=== PATIENT | male | born 1960 | race Caucasian/White ===

== ENCOUNTER 2016-07-06 20:21 | Inpatient (IN) | payer BC ==
[2016-07-06] VITALS (7 sets, daily range): BP systolic 59–160; BP diastolic 38–63
[~2016-07-06] VITALS: Ht 170.2 cm; Wt 128.0 kg
[2016-07-06 22:17] LABS: BASE EXCESS -12.3 mEq/L (-3 to +3); BICARBONATE 16.9 mEq/L (22-26); CARBOXY HGB 1.5 % (0-5); METHEMOGLOBIN 0.9 % (0-1.5); PCO2 52 mm Hg (35-45); PO2 75 mm Hg (80-100)
[2016-07-06 22:20] LABS: pH 7.12 (7.35-7.45)
[2016-07-06 22:21] LABS: DEVICE PB840; FI02 100 %; MECHANICAL RATE 20 resp/min; MODE AC; PEEP 5 CM/H20; SITE LR; TIDAL VOLUME 500 ML; TOTAL RESP RATE 20 resp/min
[2016-07-07] VITALS (28 sets, daily range): BP systolic 64–178; BP diastolic 37–83
[2016-07-07 00:18] LABS: METH RESISTANT S AUREUS PCR NEGATIVE (NEGATIVE)
[2016-07-07 00:19] LABS: PROBE CHECK PASS; SPECIMEN PROCESSING CONTROL PASS
[2016-07-07 00:30] LABS: BASE EXCESS -16.6 mEq/L (-3 to +3); BICARBONATE 13.9 mEq/L (22-26); DEVICE VENT; FI02 100 %; MECHANICAL RATE 20 resp/min; METHEMOGLOBIN 1.4 % (0-1.5); MODE A/C PC; PCO2 54 mm Hg (35-45); PEEP 10 CM/H20; PO2 52 mm Hg (80-100); PRESSURE CONTROL VENTILATION 15 CM H20; SITE LR ALINE; TOTAL RESP RATE 20 resp/min; pH 7.02 (7.35-7.45)
[2016-07-07 00:31] LABS: COMMENTS - BLOOD GASES C+
[2016-07-07 00:55] LABS: MEAN PLAT.VOLUME 11.1 uM^3 (9.0-12.4); PLATELET COUNT 324 K/uL (156-360)
[2016-07-07 01:04] LABS: HEMATOCRIT 33.7 % (38.0-50.0); MCH 27.5 PG (29.0-34.0); MCHC 30.3 G/DL (30.0-36.0); MCV 90.8 FL (86-99); NRBC (%) 0.1 /100 WBC (0-0); RBC DIS.WIDTH-CV 14.4 % (11.8-14.6); RBC DIS.WIDTH-SD 47.7 % (39-53); RED BLOOD COUNT 3.71 M/uL (4.00-5.50); WHITE BLOOD COUNT 29.9 K/uL (4.1-10.2)
[2016-07-07 01:06] LABS: CHLORIDE 110 mEq/L (99-109); MAGNESIUM 1.3 mg/dL (1.3-2.7); SODIUM 136 mEq/L (136-147)
[2016-07-07 01:08] LABS: GLUCOSE 260 mg/dL (70-99)
[2016-07-07 01:10] LABS: ANION GAP 13 MEQ/L (2-14); TOTAL BILIRUBIN 0.5 mg/dL (0.0-1.0)
[2016-07-07 01:12] LABS: ALKALINE PHOSPHATASE 57 IU/L (3-129); GFR ESTIMATE (CALCULATED) 16 mL/min/
[2016-07-07 01:13] LABS: UREA NITROGEN (BUN) 56 mg/dL (9-23)
[2016-07-07 01:17] LABS: TROP-I INTERPRETATION NEGATIVE; TROPONIN-I 0.05 ng/mL (0.0-0.30)
[2016-07-07 01:36] LABS: INTER. NORMALIZED RATIO 1.5; PROTHROMBIN TIME 15.8 (9.2-11.2); PTT 35.7 (25-32)
[2016-07-07 02:04] LABS: INFLUENZA A VIRAL ANTIGEN NEGATIVE; INFLUENZA B VIRAL ANTIGEN NEGATIVE
[2016-07-07 02:53] LABS: CHLORIDE 108 mEq/L (99-109); SODIUM 139 mEq/L (136-147)
[2016-07-07 02:54] LABS: GLUCOSE 384 mg/dL (70-99); POTASSIUM 4.6 mEq/L (3.7-5.4)
[2016-07-07 02:56] LABS: ANION GAP 19 MEQ/L (2-14)
[2016-07-07 02:58] LABS: GFR ESTIMATE (CALCULATED) 15 mL/min/
[2016-07-07 02:59] LABS: UREA NITROGEN (BUN) 56 mg/dL (9-23)
[2016-07-07 03:32] LABS: BASE EXCESS -10.3 mEq/L (-3 to +3); BICARBONATE 17.9 mEq/L (22-26); CARBOXY HGB 0.7 % (0-5); COMMENTS - BLOOD GASES C+; DEVICE 840 VENT; FI02 100 %; MECHANICAL RATE 20 resp/min; METHEMOGLOBIN 1.8 % (0-1.5); MODE AC; PCO2 49 mm Hg (35-45); PEEP 15 CM/H20; PO2 100 mm Hg (80-100); SITE ALINE; TIDAL VOLUME 650 ML; TOTAL RESP RATE 20 resp/min; pH 7.17 (7.35-7.45)
[2016-07-07 05:30] LABS: POINT-OF-CARE METER ID UU13113731
[2016-07-07 05:58] LABS: MEAN PLAT.VOLUME 11.6 uM^3 (9.0-12.4); PLATELET COUNT 331 K/uL (156-360)
[2016-07-07 06:22] LABS: ANION GAP 25 MEQ/L (2-14); CHLORIDE 104 MEQ/L (99-109); GFR ESTIMATE (CALCULATED) 15 mL/min/; GLUCOSE 397 mg/dL (70-99); MAGNESIUM 1.3 mg/dl (1.3-2.7); POTASSIUM 4.4 MEQ/L (3.7-5.4); SAMPLE HEMOLYSIS CHECK 0; SAMPLE ICTERIC CHECK 0; SAMPLE LIPEMIA CHECK 0; SODIUM 144 MEQ/L (136-147); UREA NITROGEN (BUN) 58 mg/dL (9-23)
[2016-07-07 06:27] LABS: HEMATOCRIT 34.2 % (38.0-50.0); MCH 26.9 PG (29.0-34.0); MCHC 29.5 G/DL (30.0-36.0); MCV 91.2 FL (86-99); RBC DIS.WIDTH-CV 14.4 % (11.8-14.6); RBC DIS.WIDTH-SD 48.5 % (39-53); RED BLOOD COUNT 3.75 M/uL (4.00-5.50)
[2016-07-07 06:30] LABS: TROP-I INTERPRETATION NEGATIVE; TROPONIN-I 0.08 ng/mL (0.0-0.30)
[2016-07-07 06:40] LABS: WHITE BLOOD COUNT 37.3 K/uL (4.1-10.2)
[2016-07-07 07:02] LABS: BASE EXCESS -11.9 mEq/L (-3 to +3); BICARBONATE 15.2 mEq/L (22-26); CARBOXY HGB 0.5 % (0-5); METHEMOGLOBIN 1.5 % (0-1.5); PCO2 38 mm Hg (35-45); PO2 71 mm Hg (80-100); pH 7.21 (7.35-7.45)
[2016-07-07 07:03] LABS: DEVICE VENT; FI02 80 %; MECHANICAL RATE 20 resp/min; MODE AC; O2 FLOW 60 L/MIN; SITE L ALINE; TIDAL VOLUME 650 ML; TOTAL RESP RATE 20 resp/min
[2016-07-07 07:04] LABS: PEEP 12 CM/H20
[2016-07-07 12:52] LABS: TROP-I INTERPRETATION NEGATIVE
[2016-07-07 13:10] LABS: ANION GAP 16 MEQ/L (2-14); CHLORIDE 101 MEQ/L (99-109); SAMPLE HEMOLYSIS CHECK 2; SAMPLE ICTERIC CHECK 0; SAMPLE LIPEMIA CHECK 0; SODIUM 138 MEQ/L (136-147); UREA NITROGEN (BUN) 58 mg/dL (9-23)
[2016-07-07 13:11] LABS: GFR ESTIMATE (CALCULATED) 19 mL/min/; GLUCOSE 502 mg/dL (70-99)
[2016-07-07 13:13] LABS: POTASSIUM ND MEQ/L (3.7-5.4)
[2016-07-07 13:45] LABS: ADD MIUA? YES; BILIRUBIN NEGATIVE; BLOOD LARGE; COLOR YELLOW ((YELLOW)); GLUCOSE (STRIP) >=500; KETONES 5; LEUKOCYTES NEGATIVE; NITRITE NEGATIVE; PROTEIN (STRIP) 30; SPECIFIC GRAVITY 1.015 (1.000-1.030); UROBILINOGEN 0.2 MG/DL (0.2-1.0)
[2016-07-07 13:52] LABS: POTASSIUM 5.1 MEQ/L (3.7-5.4)
[2016-07-07 14:19] LABS: HEMATOCRIT 31.4 % (38.0-50.0); MCH 27.8 PG (29.0-34.0); MCHC 32.8 G/DL (30.0-36.0); MEAN PLAT.VOLUME 11.5 uM^3 (9.0-12.4); NRBC (%) 0.1 /100 WBC (0-0); PLATELET COUNT 269 K/uL (156-360); RBC DIS.WIDTH-CV 14.2 % (11.8-14.6)
[2016-07-07 14:23] LABS: MCV 84.9 FL (86-99); WHITE BLOOD COUNT 16.5 K/uL (4.1-10.2)
[2016-07-07 14:32] LABS: Estimated Average Glucose 209 mg/dL (70-123); HEMOGLOBIN A1c (GLYCOHEMOGLOB) 8.9 % HGB (Below 5.7)
[2016-07-07 14:35] LABS: INTER. NORMALIZED RATIO 1.5; PROTHROMBIN TIME 15.9 (9.2-11.2); PTT 32.8 (25-32)
[2016-07-07 14:36] LABS: BACTERIA RARE /HPF; EPITHELIAL CELLS RARE /HPF; HYALINE CASTS 0-5 /LPF; MUCUS TRACE /LPF; RED BLOOD CELLS TNTC /HPF (0-5)
[2016-07-07 15:48] LABS: MCH 27.6 PG (29.0-34.0); MCHC 32.6 G/DL (30.0-36.0); MCV 84.7 FL (86-99); MEAN PLAT.VOLUME 10.9 uM^3 (9.0-12.4); PLATELET COUNT 255 K/uL (156-360); RBC DIS.WIDTH-CV 14.2 % (11.8-14.6); RBC DIS.WIDTH-SD 44.1 % (39-53); RED BLOOD COUNT 3.66 M/uL (4.00-5.50); WHITE BLOOD COUNT 19.7 K/uL (4.1-10.2)
[2016-07-07 16:14] LABS: TROP-I INTERPRETATION NEGATIVE; TROPONIN-I 0.29 ng/mL (0.0-0.30)
[2016-07-07 16:27] LABS: ALKALINE PHOSPHATASE 57 IU/L (3-129); ANION GAP 15 MEQ/L (2-14); CHLORIDE 101 MEQ/L (99-109); GFR ESTIMATE (CALCULATED) 20 mL/min/; GLUCOSE 443 mg/dL (70-99); POTASSIUM 4.1 MEQ/L (3.7-5.4); SAMPLE HEMOLYSIS CHECK 0; SAMPLE ICTERIC CHECK 0; SAMPLE LIPEMIA CHECK 0; SODIUM 138 MEQ/L (136-147); TOTAL BILIRUBIN 0.9 MG/DL (0.0-1.0); UREA NITROGEN (BUN) 58 mg/dL (9-23)
[2016-07-07 21:00] LABS: BASE EXCESS 0 mEq/L (-3 to +3); CARBOXY HGB 0.3 % (0-5); METHEMOGLOBIN 1.5 % (0-1.5); PO2 73 mm Hg (80-100)
[2016-07-07 21:01] LABS: BICARBONATE 22.6 mEq/L (22-26); COMMENTS - BLOOD GASES ALINE; DEVICE VENT; MECHANICAL RATE 20 resp/min; MODE A/C; PCO2 29 mm Hg (35-45); PEEP 14 CM/H20; SITE LEFT ALINE; TIDAL VOLUME 650 ML
[2016-07-07 21:31] LABS: EOSINOPHIL (%) 0 % (0-5); IMMATURE GRANULOCYTE (%) 0.5 % (0.0-0.7); IMMATURE GRANULOCYTE COUNT 0.1 K/uL; INSTRUMENT ABS NEUTROPHIL CT 15.5 K/uL; LYMPHOCYTE COUNT 0.6 K/uL (1.0-2.8); MONOCYTE (%) 2.2 % (3-12); MONOCYTE COUNT 0.4 K/uL (0-0.8); NEUTROPHIL (%) 93.8 % (45-76); NEUTROPHIL COUNT 15.5 K/uL (1.8-6.4)
[2016-07-07 21:39] LABS: ANION GAP 14 MEQ/L (2-14); CHLORIDE 102 MEQ/L (99-109); GLUCOSE 381 mg/dL (70-99); POTASSIUM 3.3 MEQ/L (3.7-5.4); SAMPLE HEMOLYSIS CHECK 0; SAMPLE ICTERIC CHECK 0; SAMPLE LIPEMIA CHECK 0; SODIUM 139 MEQ/L (136-147); UREA NITROGEN (BUN) 51 mg/dL (9-23)
[2016-07-07 21:44] LABS: GFR ESTIMATE (CALCULATED) 24 mL/min/; MAGNESIUM 1.7 mg/dl (1.3-2.7)
[2016-07-08] VITALS (7 sets, daily range): BP systolic 115–152; BP diastolic 63–83
[2016-07-08 01:35] LABS: POINT-OF-CARE USER ID 609231305
[2016-07-08] MEDS ORDERED: GLIMEPIRIDE2 MG PO (02:50)
[2016-07-08] MEDS ORDERED: LISINOPRIL30 MG PO (03:21)
[2016-07-08] MEDS ORDERED: ATORVASTATIN CA10 MG PO (03:23)
[2016-07-08] MEDS ORDERED: CALAN SR,COVER240 MG PO (03:24)
[2016-07-08] MEDS ORDERED: PRILOSEC20 MG PO (03:25)
[2016-07-08] MEDS ORDERED: ZOLOFT100 MG PO (03:25)
[2016-07-08] MEDS ORDERED: GLUCOPHAGE500 MG PO (03:27)
[2016-07-08] MEDS ORDERED: HUMALOG100 UNIT/1 SC (03:34)
[2016-07-08] MEDS ORDERED: PERCOCET 10/1 TABLET PO (03:36)
[2016-07-08] MEDS ORDERED: ALEVE220 MG PO (03:37)
[2016-07-08] MEDS ORDERED: CELEBREX200 MG PO (03:38)
[2016-07-08] MEDS ORDERED: TOUJEO SOL300 UNIT/1 SC (03:39)
[2016-07-08 04:22] LABS: HEMATOCRIT 30.9 % (38.0-50.0); MCH 27.5 PG (29.0-34.0); MCV 83.3 FL (86-99); MEAN PLAT.VOLUME 11.1 uM^3 (9.0-12.4); NRBC (%) 0.1 /100 WBC (0-0); PLATELET COUNT 225 K/uL (156-360); RBC DIS.WIDTH-CV 14.2 % (11.8-14.6); RBC DIS.WIDTH-SD 43.6 % (39-53); RED BLOOD COUNT 3.71 M/uL (4.00-5.50); WHITE BLOOD COUNT 18.9 K/uL (4.1-10.2)
[2016-07-08 04:23] LABS: EOSINOPHIL (%) 0 % (0-5); IMMATURE GRANULOCYTE (%) 0.9 % (0.0-0.7); IMMATURE GRANULOCYTE COUNT 0.2 K/uL; INSTRUMENT ABS NEUTROPHIL CT 17.7 K/uL; LYMPHOCYTE COUNT 0.6 K/uL (1.0-2.8); MONOCYTE (%) 2.1 % (3-12); MONOCYTE COUNT 0.4 K/uL (0-0.8); NEUTROPHIL (%) 93.6 % (45-76); NEUTROPHIL COUNT 17.7 K/uL (1.8-6.4)
[2016-07-08 04:35] LABS: CHLORIDE 106 mEq/L (99-109); POTASSIUM 3.5 mEq/L (3.7-5.4); SODIUM 142 mEq/L (136-147)
[2016-07-08 04:38] LABS: GLUCOSE 232 mg/dL (70-99)
[2016-07-08 04:39] LABS: ANION GAP 13 MEQ/L (2-14)
[2016-07-08 04:41] LABS: ALKALINE PHOSPHATASE 63 IU/L (3-129)
[2016-07-08 04:42] LABS: GFR ESTIMATE (CALCULATED) 28 mL/min/; MAGNESIUM 1.8 mg/dL (1.3-2.7); TOTAL BILIRUBIN 0.7 mg/dL (0.0-1.0)
[2016-07-08 04:43] LABS: UREA NITROGEN (BUN) 49 mg/dL (9-23)
[2016-07-08 04:45] LABS: URIC ACID 7.2 mg/dL (3.1-9.2)
[2016-07-08 04:50] LABS: TROP-I INTERPRETATION POSITIVE; TROPONIN-I 3.42 ng/mL (0.0-0.30)
[2016-07-08 05:26] LABS: VANCOMYCIN, TROUGH 14.5 MCG/ML (10-20)
[2016-07-08 08:15] LABS: BASE EXCESS 2.7 mEq/L (-3 to +3); BICARBONATE 26.1 mEq/L (22-26); CARBOXY HGB 0.5 % (0-5); DEVICE VENT; FI02 50 %; MECHANICAL RATE 16 resp/min; METHEMOGLOBIN 1.3 % (0-1.5); MODE AC; PCO2 35 mm Hg (35-45); PO2 133 mm Hg (80-100); SITE L ALINE; TIDAL VOLUME 650 ML; TOTAL RESP RATE 20 resp/min; pH 7.48 (7.35-7.45)
[2016-07-08 08:16] LABS: PEEP 14 CM/H20
[2016-07-08 10:57] LABS: POINT-OF-CARE METER ID UU13113803
[2016-07-08 13:49] LABS: TROPONIN-I 6.45 ng/mL (0.0-0.30)
[2016-07-08 13:52] LABS: TROP-I INTERPRETATION POSITIVE
[2016-07-08 18:07] LABS: POINT-OF-CARE METER ID UU14174217
[2016-07-08 18:19] LABS: HEMATOCRIT 28.7 % (38.0-50.0); MCH 27.3 PG (29.0-34.0); MCHC 32.1 G/DL (30.0-36.0); MCV 85.2 FL (86-99); MEAN PLAT.VOLUME 11.4 uM^3 (9.0-12.4); PLATELET COUNT 216 K/uL (156-360); RBC DIS.WIDTH-CV 14.4 % (11.8-14.6); RBC DIS.WIDTH-SD 45.1 % (39-53); RED BLOOD COUNT 3.37 M/uL (4.00-5.50)
[2016-07-08 18:46] LABS: TROP-I INTERPRETATION POSITIVE; TROPONIN-I 4.37 ng/mL (0.0-0.30)
[2016-07-09] VITALS: BP 153/70
[2016-07-09 06:11] LABS: POINT-OF-CARE METER ID UU14174217
[2016-07-09 07:49] LABS: EOSINOPHIL (%) 0 % (0-5); IMMATURE GRANULOCYTE (%) 2.1 % (0.0-0.7); IMMATURE GRANULOCYTE COUNT 0.3 K/uL; INSTRUMENT ABS NEUTROPHIL CT 10.7 K/uL; LYMPHOCYTE COUNT 0.7 K/uL (1.0-2.8); MCHC 31.5 G/DL (30.0-36.0); MCV 85.7 FL (86-99); MEAN PLAT.VOLUME 11.1 uM^3 (9.0-12.4); MONOCYTE (%) 5.6 % (3-12); MONOCYTE COUNT 0.7 K/uL (0-0.8); NEUTROPHIL (%) 86.3 % (45-76); NEUTROPHIL COUNT 10.7 K/uL (1.8-6.4); PLATELET COUNT 195 K/uL (156-360); RBC DIS.WIDTH-CV 14.6 % (11.8-14.6); RBC DIS.WIDTH-SD 45.7 % (39-53); RED BLOOD COUNT 3.15 M/uL (4.00-5.50)
[2016-07-09 07:50] LABS: WHITE BLOOD COUNT 12.4 K/uL (4.1-10.2)
[2016-07-09 08:00] VITALS: BP 163/81
[2016-07-09 08:14] LABS: ALKALINE PHOSPHATASE 59 IU/L (3-129); ANION GAP 12 MEQ/L (2-14); CHLORIDE 108 MEQ/L (99-109); GLUCOSE 333 mg/dL (70-99); POTASSIUM 4.1 MEQ/L (3.7-5.4); SAMPLE HEMOLYSIS CHECK 0; SAMPLE ICTERIC CHECK 0; SAMPLE LIPEMIA CHECK 0; SODIUM 145 MEQ/L (136-147); UREA NITROGEN (BUN) 52 mg/dL (9-23)
[2016-07-09 08:20] LABS: GFR ESTIMATE (CALCULATED) 41 mL/min/; MAGNESIUM 2.3 mg/dl (1.3-2.7); TOTAL BILIRUBIN 0.6 MG/DL (0.0-1.0)
[2016-07-09 08:33] LABS: TROP-I INTERPRETATION POSITIVE; TROPONIN-I 1.59 ng/mL (0.0-0.30)
[2016-07-09 12:00] VITALS: BP 111/60
[2016-07-09 16:00] VITALS: BP 139/64
[2016-07-09 18:12] LABS: MCH 27.2 PG (29.0-34.0); MCHC 31.4 G/DL (30.0-36.0); MCV 86.4 FL (86-99); MEAN PLAT.VOLUME 11.5 uM^3 (9.0-12.4); PLATELET COUNT 196 K/uL (156-360); RBC DIS.WIDTH-CV 14.5 % (11.8-14.6); RBC DIS.WIDTH-SD 46.5 % (39-53); RED BLOOD COUNT 3.24 M/uL (4.00-5.50); WHITE BLOOD COUNT 9.1 K/uL (4.1-10.2)
[2016-07-09 20:00] VITALS: BP 154/80
[2016-07-10] VITALS (15 sets, daily range): BP systolic 142–205; BP diastolic 44–82
[2016-07-10 01:49] LABS: C DIFF TOXIN NEGATIVE (NEGATIVE)
[2016-07-10 01:54] LABS: PROBE CHECK PASS; SPECIMEN PROCESSING CONTROL PASS
[2016-07-10 05:39] LABS: HEMATOCRIT 28.2 % (38.0-50.0); MCH 26.8 PG (29.0-34.0); MCHC 30.9 G/DL (30.0-36.0); MCV 86.8 FL (86-99); MEAN PLAT.VOLUME 11.1 uM^3 (9.0-12.4); PLATELET COUNT 167 K/uL (156-360); RBC DIS.WIDTH-CV 14.5 % (11.8-14.6); RED BLOOD COUNT 3.25 M/uL (4.00-5.50); WHITE BLOOD COUNT 8.9 K/uL (4.1-10.2)
[2016-07-10 06:13] LABS: ALKALINE PHOSPHATASE 63 IU/L (3-129); ANION GAP 12 MEQ/L (2-14); CHLORIDE 110 MEQ/L (99-109); GFR ESTIMATE (CALCULATED) 51 mL/min/; GLUCOSE 366 mg/dL (70-99); MAGNESIUM 2.5 mg/dl (1.3-2.7); POTASSIUM 3.4 MEQ/L (3.7-5.4); SAMPLE HEMOLYSIS CHECK 0; SAMPLE ICTERIC CHECK 0; SAMPLE LIPEMIA CHECK 0; SODIUM 146 MEQ/L (136-147); TOTAL BILIRUBIN 0.7 MG/DL (0.0-1.0); UREA NITROGEN (BUN) 53 mg/dL (9-23)
[2016-07-10 06:21] LABS: ABS NEUTROPHIL COUNT 7.9; ANISOCYTOSIS 1+; BAND NEUTROPHILS 1.8 % (0-8.0); EOSINOPHIL ABS CT 0; INSTRUMENT ABS NEUTROPHIL CT 7.3 K/uL; LYMPHOCYTES 5.3 % (15.0-45.0); METAMYELOCYTES 3.5 %; MICROCYTOSIS 1+; PLAT.SUFFICIENCY ADEQUATE; SEG.NEUTROPHILS 86.8 % (46.0-76.0)
[2016-07-10 17:58] LABS: HEMATOCRIT 29.8 % (38.0-50.0); MCH 26.9 PG (29.0-34.0); MCHC 30.2 G/DL (30.0-36.0); MEAN PLAT.VOLUME 11.2 uM^3 (9.0-12.4); NRBC (%) 0.3 /100 WBC (0-0); PLATELET COUNT 193 K/uL (156-360); RBC DIS.WIDTH-CV 14.6 % (11.8-14.6); RBC DIS.WIDTH-SD 47.5 % (39-53); RED BLOOD COUNT 3.35 M/uL (4.00-5.50); WHITE BLOOD COUNT 10.5 K/uL (4.1-10.2)
[2016-07-11] VITALS (23 sets, daily range): BP systolic 0–207; BP diastolic 0–73
[2016-07-11 03:11] LABS: POINT-OF-CARE METER ID UU13113731
[2016-07-11 06:20] LABS: POINT-OF-CARE METER ID UU13113731
[2016-07-11 07:06] LABS: MCHC 30.7 G/DL (30.0-36.0); MEAN PLAT.VOLUME 10.8 uM^3 (9.0-12.4); NRBC (%) 0.6 /100 WBC (0-0); PLATELET COUNT 193 K/uL (156-360); RBC DIS.WIDTH-CV 14.6 % (11.8-14.6); RBC DIS.WIDTH-SD 46.8 % (39-53); RED BLOOD COUNT 3.41 M/uL (4.00-5.50); WHITE BLOOD COUNT 10.6 K/uL (4.1-10.2)
[2016-07-11 07:30] LABS: ALKALINE PHOSPHATASE 59 IU/L (3-129); ANION GAP 8 MEQ/L (2-14); CHLORIDE 112 MEQ/L (99-109); GFR ESTIMATE (CALCULATED) > 59 mL/min/; GLUCOSE 291 mg/dL (70-99); MAGNESIUM 2.5 mg/dl (1.3-2.7); POTASSIUM 3.7 MEQ/L (3.7-5.4); SAMPLE HEMOLYSIS CHECK 0; SAMPLE ICTERIC CHECK 0; SAMPLE LIPEMIA CHECK 0; SODIUM 150 MEQ/L (136-147); UREA NITROGEN (BUN) 50 mg/dL (9-23)
[2016-07-11 07:31] LABS: TOTAL BILIRUBIN 0.5 MG/DL (0.0-1.0)
[2016-07-11 08:08] LABS: ABS NEUTROPHIL COUNT 9.1; BAND NEUTROPHILS 3.5 % (0-8.0); EOSINOPHIL ABS CT 0; INSTRUMENT ABS NEUTROPHIL CT 8.3 K/uL; LYMPHOCYTES 7.9 % (15.0-45.0); NUCLEATED RBC'S 1.8; PLAT.SUFFICIENCY ADEQUATE; SEG.NEUTROPHILS 82.5 % (46.0-76.0)
[2016-07-11 12:11] LABS: POINT-OF-CARE METER ID UU13113731
[2016-07-11 15:58] LABS: BASE EXCESS 5.9 mEq/L (-3 to +3); CARBOXY HGB 0.8 % (0-5); METHEMOGLOBIN 1.3 % (0-1.5)
[2016-07-11 15:59] LABS: BICARBONATE 31.6 mEq/L (22-26); COMMENTS - BLOOD GASES C+A-N/A; CONTINUOUS POS AIRWAY PRESSURE 8 cm H2O; DEVICE 840 VENTILATOR; FI02 70 %; MODE NIPPV; PCO2 51 mm Hg (35-45); PO2 85 mm Hg (80-100); PRES. SUPPORT 15 CM/H2O; SITE RR; TOTAL RESP RATE 28 resp/min
[2016-07-11 17:33] LABS: BASE EXCESS 5.1 mEq/L (-3 to +3); BICARBONATE 32.5 mEq/L (22-26); COMMENTS - BLOOD GASES C+A-N/A; DEVICE HHFNC; FI02 100 %; METHEMOGLOBIN 1.3 % (0-1.5); O2 FLOW 35 L/MIN; PCO2 63 mm Hg (35-45); PO2 83 mm Hg (80-100); SITE RR; TOTAL RESP RATE 28 resp/min; pH 7.32 (7.35-7.45)
[2016-07-11] MEDS ORDERED: LISINOPRIL20 MG PO (18:01)
[2016-07-11] MEDS ORDERED: ATORVASTATIN CA20 MG PO (18:02)
[2016-07-11] MEDS ORDERED: HUMULIN 70100 UNIT/3 SC (18:05)
[2016-07-11 18:28] LABS: HEMATOCRIT 31.5 % (38.0-50.0); MCH 26.9 PG (29.0-34.0); MCHC 29.8 G/DL (30.0-36.0); MCV 90.3 FL (86-99); NRBC (%) 0.2 /100 WBC (0-0); PLATELET COUNT 202 K/uL (156-360); RBC DIS.WIDTH-CV 14.8 % (11.8-14.6); RBC DIS.WIDTH-SD 48.4 % (39-53); RED BLOOD COUNT 3.49 M/uL (4.00-5.50); WHITE BLOOD COUNT 13.3 K/uL (4.1-10.2)
[2016-07-11] MEDS ORDERED: LIDOCAINE HCL35 GM TP (18:51)
[2016-07-11 20:01] LABS: BASE EXCESS 6.6 mEq/L (-3 to +3); BICARBONATE 31.3 mEq/L (22-26); CARBOXY HGB 0.8 % (0-5); COMMENTS - BLOOD GASES A+C+; DEVICE 840; FI02 100 %; MECHANICAL RATE 16 resp/min; MODE AC; PCO2 45 mm Hg (35-45); PEEP 8 CM/H20; PO2 124 mm Hg (80-100); SITE RR; TIDAL VOLUME 600 ML; TOTAL RESP RATE 16 resp/min; pH 7.45 (7.35-7.45)
[2016-07-11 20:24] LABS: POINT-OF-CARE METER ID UU13113731
[2016-07-11 23:21] LABS: POINT-OF-CARE METER ID UU13113731
[2016-07-12] VITALS (23 sets, daily range): BP systolic 122–187; BP diastolic 42–72
[2016-07-12 05:40] LABS: INTER. NORMALIZED RATIO 1.2; PTT 25.3 (25-32)
[2016-07-12 05:54] LABS: HEMATOCRIT 30.1 % (38.0-50.0); MCH 26.8 PG (29.0-34.0); MCHC 30.2 G/DL (30.0-36.0); MCV 88.8 FL (86-99); MEAN PLAT.VOLUME 11.5 uM^3 (9.0-12.4); NRBC (%) 0.3 /100 WBC (0-0); PLATELET COUNT 196 K/uL (156-360); RBC DIS.WIDTH-CV 14.7 % (11.8-14.6); RBC DIS.WIDTH-SD 47.8 % (39-53); RED BLOOD COUNT 3.39 M/uL (4.00-5.50); WHITE BLOOD COUNT 11.4 K/uL (4.1-10.2)
[2016-07-12 05:59] LABS: ALKALINE PHOSPHATASE 55 IU/L (3-129); ANION GAP 11 MEQ/L (2-14); CHLORIDE 109 MEQ/L (99-109); GFR ESTIMATE (CALCULATED) > 59 mL/min/; GLUCOSE 168 mg/dL (70-99); POTASSIUM 3.6 MEQ/L (3.7-5.4); SAMPLE HEMOLYSIS CHECK 0; SAMPLE ICTERIC CHECK 0; SAMPLE LIPEMIA CHECK 0; SODIUM 149 MEQ/L (136-147); TOTAL BILIRUBIN 0.4 MG/DL (0.0-1.0); UREA NITROGEN (BUN) 49 mg/dL (9-23)
[2016-07-12 06:02] LABS: MAGNESIUM 2.1 mg/dl (1.3-2.7)
[2016-07-12 07:48] LABS: ABS NEUTROPHIL COUNT 10.2; ANISOCYTOSIS 1+; EOSINOPHIL ABS CT 0; INSTRUMENT ABS NEUTROPHIL CT 9.3 K/uL; LYMPHOCYTES 4.3 % (15.0-45.0); MACROCYTES 1+; METAMYELOCYTES 0.9 %; MYELOCYTES 1.7 %; PLAT.SUFFICIENCY ADEQUATE; POLYCHROMASIA 1+; SEG.NEUTROPHILS 89.7 % (46.0-76.0)
[2016-07-12 18:21] LABS: MCH 26.9 PG (29.0-34.0); MCHC 30.3 G/DL (30.0-36.0); MCV 88.6 FL (86-99); MEAN PLAT.VOLUME 11.1 uM^3 (9.0-12.4); PLATELET COUNT 232 K/uL (156-360); RBC DIS.WIDTH-CV 14.7 % (11.8-14.6); RBC DIS.WIDTH-SD 47.5 % (39-53)
[2016-07-12 18:22] LABS: WHITE BLOOD COUNT 7.1 K/uL (4.1-10.2)
[2016-07-13] VITALS (22 sets, daily range): BP systolic 121–193; BP diastolic 40–82
[2016-07-13 05:46] LABS: BASE EXCESS 6.3 mEq/L (-3 to +3); BICARBONATE 31.2 mEq/L (22-26); CARBOXY HGB 1.3 % (0-5); COMMENTS - BLOOD GASES C+; DEVICE VENT; FI02 50 %; MECHANICAL RATE 16 resp/min; METHEMOGLOBIN 1.4 % (0-1.5); MODE AC; PCO2 46 mm Hg (35-45); PO2 86 mm Hg (80-100); SITE RR; pH 7.44 (7.35-7.45)
[2016-07-13 05:47] LABS: HEMOGLOBIN 8.3 (12.5-16.6); PEEP 5 CM/H20; TIDAL VOLUME 600 ML; TOTAL RESP RATE 16 resp/min
[2016-07-13 06:59] LABS: HEMATOCRIT 29.9 % (38.0-50.0); MCH 27.5 PG (29.0-34.0); MCHC 30.8 G/DL (30.0-36.0); MCV 89.5 FL (86-99); MEAN PLAT.VOLUME 10.8 uM^3 (9.0-12.4); NRBC (%) 0.3 /100 WBC (0-0); PLATELET COUNT 219 K/uL (156-360); RBC DIS.WIDTH-CV 15.1 % (11.8-14.6); RBC DIS.WIDTH-SD 48.1 % (39-53); RED BLOOD COUNT 3.34 M/uL (4.00-5.50); WHITE BLOOD COUNT 7.4 K/uL (4.1-10.2)
[2016-07-13 07:25] LABS: ALKALINE PHOSPHATASE 58 IU/L (3-129); ANION GAP 8 MEQ/L (2-14); CHLORIDE 110 MEQ/L (99-109); GFR ESTIMATE (CALCULATED) > 59 mL/min/; GLUCOSE 186 mg/dL (70-99); POTASSIUM 3.7 MEQ/L (3.7-5.4); SAMPLE HEMOLYSIS CHECK 0; SAMPLE ICTERIC CHECK 0; SAMPLE LIPEMIA CHECK 0; SODIUM 149 MEQ/L (136-147); TOTAL BILIRUBIN 0.4 MG/DL (0.0-1.0); UREA NITROGEN (BUN) 52 mg/dL (9-23)
[2016-07-13 18:48] LABS: HEMATOCRIT 32.3 % (38.0-50.0); MCH 26.5 PG (29.0-34.0); MCHC 29.4 G/DL (30.0-36.0); MEAN PLAT.VOLUME 11.9 uM^3 (9.0-12.4); PLATELET COUNT 213 K/uL (156-360); RBC DIS.WIDTH-CV 15.3 % (11.8-14.6); RBC DIS.WIDTH-SD 49.9 % (39-53); RED BLOOD COUNT 3.59 M/uL (4.00-5.50); WHITE BLOOD COUNT 9.7 K/uL (4.1-10.2)
[2016-07-14] VITALS (23 sets, daily range): BP systolic 140–185; BP diastolic 41–68
[2016-07-14 03:33] LABS: POINT-OF-CARE METER ID UU13113803
[2016-07-14 06:09] LABS: POINT-OF-CARE METER ID UU13113803
[2016-07-14 06:31] LABS: EOSINOPHIL (%) 0.1 % (0-5); HEMATOCRIT 29.3 % (38.0-50.0); IMMATURE GRANULOCYTE (%) 2.6 % (0.0-0.7); IMMATURE GRANULOCYTE COUNT 0.2 K/uL; INSTRUMENT ABS NEUTROPHIL CT 7.1 K/uL; LYMPHOCYTE COUNT 0.5 K/uL (1.0-2.8); MCH 26.6 PG (29.0-34.0); MCV 88.5 FL (86-99); MEAN PLAT.VOLUME 10.8 uM^3 (9.0-12.4); MONOCYTE (%) 4.4 % (3-12); MONOCYTE COUNT 0.4 K/uL (0-0.8); NEUTROPHIL (%) 86.4 % (45-76); NEUTROPHIL COUNT 7.1 K/uL (1.8-6.4); PLATELET COUNT 210 K/uL (156-360); RBC DIS.WIDTH-SD 48.4 % (39-53); RED BLOOD COUNT 3.31 M/uL (4.00-5.50); WHITE BLOOD COUNT 8.2 K/uL (4.1-10.2)
[2016-07-14 06:57] LABS: ALKALINE PHOSPHATASE 51 IU/L (3-129); ANION GAP 8 MEQ/L (2-14); CHLORIDE 110 MEQ/L (99-109); GFR ESTIMATE (CALCULATED) > 59 mL/min/; MAGNESIUM 2.3 mg/dl (1.3-2.7); SAMPLE HEMOLYSIS CHECK 0; SAMPLE ICTERIC CHECK 0; SAMPLE LIPEMIA CHECK 0; SODIUM 145 MEQ/L (136-147); UREA NITROGEN (BUN) 62 mg/dL (9-23)
[2016-07-14 07:12] LABS: GLUCOSE 311 mg/dL (70-99); TOTAL BILIRUBIN 0.3 MG/DL (0.0-1.0)
[2016-07-14 09:28] LABS: POINT-OF-CARE METER ID UU13113803
[2016-07-14 14:48] LABS: POINT-OF-CARE METER ID UU13113803
[2016-07-14 18:39] LABS: POINT-OF-CARE METER ID UU13113803
[2016-07-15] VITALS (24 sets, daily range): BP systolic 134–188; BP diastolic 43–72
[2016-07-15 02:27] LABS: POINT-OF-CARE METER ID UU14162636
[2016-07-15 05:50] LABS: POINT-OF-CARE METER ID UU14162636
[2016-07-15 10:49] LABS: POINT-OF-CARE METER ID UU14162636
[2016-07-15 13:47] LABS: POINT-OF-CARE METER ID UU13113731
[2016-07-15 14:13] LABS: EOSINOPHIL COUNT 0.1 K/uL (0-0.3); HEMATOCRIT 31.4 % (38.0-50.0); IMMATURE GRANULOCYTE (%) 1.3 % (0.0-0.7); IMMATURE GRANULOCYTE COUNT 0.1 K/uL; INSTRUMENT ABS NEUTROPHIL CT 7.6 K/uL; LYMPHOCYTE COUNT 0.9 K/uL (1.0-2.8); MCH 26.3 PG (29.0-34.0); MCHC 29.6 G/DL (30.0-36.0); MCV 88.7 FL (86-99); MEAN PLAT.VOLUME 10.6 uM^3 (9.0-12.4); MONOCYTE (%) 5.1 % (3-12); MONOCYTE COUNT 0.5 K/uL (0-0.8); NEUTROPHIL COUNT 7.6 K/uL (1.8-6.4); PLATELET COUNT 253 K/uL (156-360); RBC DIS.WIDTH-CV 14.9 % (11.8-14.6); RBC DIS.WIDTH-SD 48.2 % (39-53); RED BLOOD COUNT 3.54 M/uL (4.00-5.50); WHITE BLOOD COUNT 9.2 K/uL (4.1-10.2)
[2016-07-15 14:32] LABS: ANION GAP 7 MEQ/L (2-14); CHLORIDE 112 MEQ/L (99-109); GFR ESTIMATE (CALCULATED) > 59 mL/min/; GLUCOSE 219 mg/dL (70-99); POTASSIUM 3.6 MEQ/L (3.7-5.4); SAMPLE HEMOLYSIS CHECK 0; SAMPLE ICTERIC CHECK 0; SAMPLE LIPEMIA CHECK 0; SODIUM 149 MEQ/L (136-147); UREA NITROGEN (BUN) 67 mg/dL (9-23)
[2016-07-15 14:33] LABS: MAGNESIUM 2.7 mg/dl (1.3-2.7)
[2016-07-15 18:37] LABS: POINT-OF-CARE METER ID UU13113731
[2016-07-15 22:25] LABS: POINT-OF-CARE METER ID UU13113731
[2016-07-16] VITALS (18 sets, daily range): BP systolic 122–169; BP diastolic 49–74
[2016-07-16 02:37] LABS: POINT-OF-CARE METER ID UU14174217
[2016-07-16 05:38] LABS: EOSINOPHIL (%) 1.2 % (0-5); EOSINOPHIL COUNT 0.1 K/uL (0-0.3); HEMATOCRIT 31.3 % (38.0-50.0); IMMATURE GRANULOCYTE (%) 0.7 % (0.0-0.7); IMMATURE GRANULOCYTE COUNT 0.1 K/uL; INSTRUMENT ABS NEUTROPHIL CT 8.6 K/uL; LYMPHOCYTE COUNT 0.9 K/uL (1.0-2.8); MCH 27.3 PG (29.0-34.0); MCHC 30.4 G/DL (30.0-36.0); MCV 89.9 FL (86-99); MEAN PLAT.VOLUME 11.1 uM^3 (9.0-12.4); MONOCYTE (%) 4.6 % (3-12); MONOCYTE COUNT 0.5 K/uL (0-0.8); NEUTROPHIL (%) 84.5 % (45-76); NEUTROPHIL COUNT 8.6 K/uL (1.8-6.4); PLATELET COUNT 250 K/uL (156-360); RBC DIS.WIDTH-CV 15.1 % (11.8-14.6); RBC DIS.WIDTH-SD 49.1 % (39-53); RED BLOOD COUNT 3.48 M/uL (4.00-5.50); WHITE BLOOD COUNT 10.1 K/uL (4.1-10.2)
[2016-07-16 06:02] LABS: POINT-OF-CARE METER ID UU14174217
[2016-07-16 06:18] LABS: ANION GAP 6 MEQ/L (2-14); CHLORIDE 113 MEQ/L (99-109); GFR ESTIMATE (CALCULATED) > 59 mL/min/; GLUCOSE 267 mg/dL (70-99); MAGNESIUM 2.7 mg/dl (1.3-2.7); SAMPLE HEMOLYSIS CHECK 1; SAMPLE ICTERIC CHECK 0; SAMPLE LIPEMIA CHECK 0; SODIUM 150 MEQ/L (136-147); UREA NITROGEN (BUN) 68 mg/dL (9-23)
[2016-07-16 06:19] LABS: POTASSIUM 4.4 MEQ/L (3.7-5.4)
[2016-07-16 09:50] LABS: POINT-OF-CARE METER ID UU14174217
[2016-07-16 15:04] LABS: POINT-OF-CARE METER ID UU14174217
[2016-07-16 18:11] LABS: POINT-OF-CARE METER ID UU14174217
[2016-07-16 22:37] LABS: POINT-OF-CARE METER ID UU14174217
[2016-07-17] VITALS (19 sets, daily range): BP systolic 125–167; BP diastolic 51–74
[2016-07-17 06:40] LABS: EOSINOPHIL (%) 0.2 % (0-5); HEMATOCRIT 34.2 % (38.0-50.0); IMMATURE GRANULOCYTE (%) 0.6 % (0.0-0.7); IMMATURE GRANULOCYTE COUNT 0.1 K/uL; INSTRUMENT ABS NEUTROPHIL CT 8.7 K/uL; LYMPHOCYTE COUNT 0.4 K/uL (1.0-2.8); MCH 26.8 PG (29.0-34.0); MCHC 30.1 G/DL (30.0-36.0); MCV 89.1 FL (86-99); MEAN PLAT.VOLUME 11.8 uM^3 (9.0-12.4); MONOCYTE (%) 1.4 % (3-12); MONOCYTE COUNT 0.1 K/uL (0-0.8); NEUTROPHIL (%) 93.8 % (45-76); NEUTROPHIL COUNT 8.7 K/uL (1.8-6.4); PLATELET COUNT 227 K/uL (156-360); RBC DIS.WIDTH-CV 14.6 % (11.8-14.6); RBC DIS.WIDTH-SD 46.9 % (39-53); RED BLOOD COUNT 3.84 M/uL (4.00-5.50); WHITE BLOOD COUNT 9.3 K/uL (4.1-10.2)
[2016-07-17 06:52] LABS: ANION GAP 9 MEQ/L (2-14); CHLORIDE 114 MEQ/L (99-109); GFR ESTIMATE (CALCULATED) > 59 mL/min/; GLUCOSE 235 mg/dL (70-99); MAGNESIUM 2.7 mg/dl (1.3-2.7); POTASSIUM 4.6 MEQ/L (3.7-5.4); SAMPLE HEMOLYSIS CHECK 0; SAMPLE ICTERIC CHECK 0; SAMPLE LIPEMIA CHECK 0; SODIUM 152 MEQ/L (136-147); UREA NITROGEN (BUN) 64 mg/dL (9-23)
[2016-07-17 09:20] LABS: C DIFF TOXIN ND (NEGATIVE)
[2016-07-17 20:51] LABS: ANION GAP 9 MEQ/L (2-14); CHLORIDE 113 MEQ/L (99-109); GFR ESTIMATE (CALCULATED) > 59 mL/min/; GLUCOSE 318 mg/dL (70-99); POTASSIUM 4.3 MEQ/L (3.7-5.4); SAMPLE HEMOLYSIS CHECK 0; SAMPLE ICTERIC CHECK 0; SAMPLE LIPEMIA CHECK 0; SODIUM 149 MEQ/L (136-147); UREA NITROGEN (BUN) 65 mg/dL (9-23)
[2016-07-17 21:06] LABS: Estimated Average Glucose 223 mg/dL (70-123); HEMOGLOBIN A1c (GLYCOHEMOGLOB) 9.4 % HGB (Below 5.7)
[2016-07-17 22:06] LABS: POINT-OF-CARE METER ID UU14162636
[2016-07-18] VITALS (17 sets, daily range): BP systolic 103–163; BP diastolic 42–72
[2016-07-18 00:57] LABS: CHLORIDE 116 mEq/L (99-109); POTASSIUM 4.7 mEq/L (3.7-5.4); SODIUM 151 mEq/L (136-147)
[2016-07-18 00:58] LABS: GLUCOSE 304 mg/dL (70-99)
[2016-07-18 01:00] LABS: ANION GAP 9 MEQ/L (2-14)
[2016-07-18 01:02] LABS: GFR ESTIMATE (CALCULATED) > 59 mL/min/
[2016-07-18 01:03] LABS: UREA NITROGEN (BUN) 68 mg/dL (9-23)
[2016-07-18 03:50] LABS: EOSINOPHIL (%) 0 % (0-5); HEMATOCRIT 33.1 % (38.0-50.0); IMMATURE GRANULOCYTE (%) 1.1 % (0.0-0.7); IMMATURE GRANULOCYTE COUNT 0.1 K/uL; INSTRUMENT ABS NEUTROPHIL CT 7.8 K/uL; LYMPHOCYTE COUNT 0.6 K/uL (1.0-2.8); MCH 26.3 PG (29.0-34.0); MCHC 29.9 G/DL (30.0-36.0); MCV 87.8 FL (86-99); MEAN PLAT.VOLUME 10.5 uM^3 (9.0-12.4); MONOCYTE (%) 4.1 % (3-12); MONOCYTE COUNT 0.4 K/uL (0-0.8); NEUTROPHIL (%) 88.2 % (45-76); NEUTROPHIL COUNT 7.8 K/uL (1.8-6.4); PLATELET COUNT 276 K/uL (156-360); RBC DIS.WIDTH-CV 14.5 % (11.8-14.6); RBC DIS.WIDTH-SD 46.5 % (39-53); RED BLOOD COUNT 3.77 M/uL (4.00-5.50); WHITE BLOOD COUNT 8.8 K/uL (4.1-10.2)
[2016-07-18 04:05] LABS: CHLORIDE 116 mEq/L (99-109); SODIUM 152 mEq/L (136-147)
[2016-07-18 04:07] LABS: GLUCOSE 256 mg/dL (70-99)
[2016-07-18 04:08] LABS: ANION GAP 10 MEQ/L (2-14)
[2016-07-18 04:11] LABS: GFR ESTIMATE (CALCULATED) > 59 mL/min/; UREA NITROGEN (BUN) 67 mg/dL (9-23)
[2016-07-18 14:48] LABS: POINT-OF-CARE METER ID UU13113731
[2016-07-18 15:52] LABS: CHLORIDE 117 mEq/L (99-109); POTASSIUM 3.9 mEq/L (3.7-5.4); SODIUM 152 mEq/L (136-147)
[2016-07-18 15:54] LABS: GLUCOSE 125 mg/dL (70-99)
[2016-07-18 15:55] LABS: ANION GAP 10 MEQ/L (2-14)
[2016-07-18 15:57] LABS: GFR ESTIMATE (CALCULATED) > 59 mL/min/
[2016-07-18 15:58] LABS: UREA NITROGEN (BUN) 66 mg/dL (9-23)
[2016-07-19] VITALS (17 sets, daily range): BP systolic 78–161; BP diastolic 35–71
[2016-07-19 07:27] LABS: EOSINOPHIL (%) 0.3 % (0-5); IMMATURE GRANULOCYTE (%) 0.7 % (0.0-0.7); IMMATURE GRANULOCYTE COUNT 0.1 K/uL; INSTRUMENT ABS NEUTROPHIL CT 9.2 K/uL; LYMPHOCYTE COUNT 0.9 K/uL (1.0-2.8); MCH 26.2 PG (29.0-34.0); MCHC 28.7 G/DL (30.0-36.0); MCV 91.5 FL (86-99); MEAN PLAT.VOLUME 11.9 uM^3 (9.0-12.4); MONOCYTE (%) 5.6 % (3-12); MONOCYTE COUNT 0.6 K/uL (0-0.8); NEUTROPHIL COUNT 9.2 K/uL (1.8-6.4); PLATELET COUNT 249 K/uL (156-360); RBC DIS.WIDTH-CV 14.8 % (11.8-14.6); RBC DIS.WIDTH-SD 49.5 % (39-53); RED BLOOD COUNT 3.28 M/uL (4.00-5.50); WHITE BLOOD COUNT 10.8 K/uL (4.1-10.2)
[2016-07-19 07:58] LABS: ANION GAP 6 MEQ/L (2-14); CHLORIDE 113 MEQ/L (99-109); GFR ESTIMATE (CALCULATED) > 59 mL/min/; MAGNESIUM 2.7 mg/dl (1.3-2.7); POTASSIUM 4.4 MEQ/L (3.7-5.4); SAMPLE HEMOLYSIS CHECK 0; SAMPLE ICTERIC CHECK 0; SAMPLE LIPEMIA CHECK 0; SODIUM 147 MEQ/L (136-147); UREA NITROGEN (BUN) 70 mg/dL (9-23)
[2016-07-19 08:00] LABS: GLUCOSE 336 mg/dL (70-99)
[2016-07-20] VITALS (24 sets, daily range): BP systolic 104–188; BP diastolic 49–80
[2016-07-20 05:40] LABS: EOSINOPHIL (%) 0.5 % (0-5); EOSINOPHIL COUNT 0.1 K/uL (0-0.3); HEMATOCRIT 28.3 % (38.0-50.0); IMMATURE GRANULOCYTE (%) 0.9 % (0.0-0.7); IMMATURE GRANULOCYTE COUNT 0.1 K/uL; INSTRUMENT ABS NEUTROPHIL CT 11.2 K/uL; MCH 27.3 PG (29.0-34.0); MCHC 30.4 G/DL (30.0-36.0); MCV 89.8 FL (86-99); MEAN PLAT.VOLUME 11.4 uM^3 (9.0-12.4); MONOCYTE (%) 5.8 % (3-12); MONOCYTE COUNT 0.8 K/uL (0-0.8); NEUTROPHIL (%) 85.2 % (45-76); NEUTROPHIL COUNT 11.2 K/uL (1.8-6.4); PLATELET COUNT 271 K/uL (156-360); RBC DIS.WIDTH-SD 48.8 % (39-53); RED BLOOD COUNT 3.15 M/uL (4.00-5.50); WHITE BLOOD COUNT 13.2 K/uL (4.1-10.2)
[2016-07-20 06:05] LABS: ANION GAP 7 MEQ/L (2-14); CHLORIDE 117 MEQ/L (99-109); GFR ESTIMATE (CALCULATED) > 59 mL/min/; GLUCOSE 228 mg/dL (70-99); MAGNESIUM 2.7 mg/dl (1.3-2.7); POTASSIUM 4.5 MEQ/L (3.7-5.4); SAMPLE HEMOLYSIS CHECK 0; SAMPLE ICTERIC CHECK 0; SAMPLE LIPEMIA CHECK 0; SODIUM 150 MEQ/L (136-147); UREA NITROGEN (BUN) 64 mg/dL (9-23)
[2016-07-21] VITALS (23 sets, daily range): BP systolic 103–174; BP diastolic 41–74
[2016-07-21 06:12] LABS: EOSINOPHIL (%) 0.3 % (0-5); HEMATOCRIT 26.2 % (38.0-50.0); IMMATURE GRANULOCYTE (%) 0.6 % (0.0-0.7); IMMATURE GRANULOCYTE COUNT 0.1 K/uL; INSTRUMENT ABS NEUTROPHIL CT 13.9 K/uL; LYMPHOCYTE COUNT 0.9 K/uL (1.0-2.8); MCH 26.6 PG (29.0-34.0); MCHC 29.4 G/DL (30.0-36.0); MCV 90.3 FL (86-99); MEAN PLAT.VOLUME 11.9 uM^3 (9.0-12.4); MONOCYTE (%) 5.1 % (3-12); MONOCYTE COUNT 0.8 K/uL (0-0.8); NEUTROPHIL (%) 88.2 % (45-76); NEUTROPHIL COUNT 13.9 K/uL (1.8-6.4); PLATELET COUNT 261 K/uL (156-360); RBC DIS.WIDTH-CV 15.3 % (11.8-14.6); RBC DIS.WIDTH-SD 50.6 % (39-53); WHITE BLOOD COUNT 15.7 K/uL (4.1-10.2)
[2016-07-21 06:49] LABS: ANION GAP 8 MEQ/L (2-14); CHLORIDE 116 MEQ/L (99-109); GFR ESTIMATE (CALCULATED) 41 mL/min/; MAGNESIUM 2.6 mg/dl (1.3-2.7); POTASSIUM 4.8 MEQ/L (3.7-5.4); SAMPLE HEMOLYSIS CHECK 0; SAMPLE ICTERIC CHECK 0; SAMPLE LIPEMIA CHECK 0; SODIUM 148 MEQ/L (136-147); UREA NITROGEN (BUN) 75 mg/dL (9-23)
[2016-07-21 06:51] LABS: GLUCOSE 388 mg/dL (70-99)
[2016-07-21 08:18] LABS: ADD MIUA? YES; BILIRUBIN NEGATIVE; BLOOD LARGE; COLOR YELLOW ((YELLOW)); GLUCOSE (STRIP) >=500; KETONES NEGATIVE; LEUKOCYTES SMALL; NITRITE NEGATIVE; PROTEIN (STRIP) 100; SPECIFIC GRAVITY 1.012 (1.000-1.030); UROBILINOGEN 0.2 MG/DL (0.2-1.0)
[2016-07-21 08:57] LABS: BACTERIA RARE /HPF; BUDDING YEAST 2+; EPITHELIAL CELLS NONE SEEN /HPF; HYALINE CASTS 0-5 /LPF; MUCUS TRACE /LPF; RED BLOOD CELLS TNTC /HPF (0-5); URIC ACID CRYSTALS 2+ /HPF; WHITE BLOOD CELLS 20-30 /HPF (0-5)
[2016-07-22] VITALS (20 sets, daily range): BP systolic 126–192; BP diastolic 48–75
[2016-07-22 07:13] LABS: EOSINOPHIL (%) 0.9 % (0-5); EOSINOPHIL COUNT 0.1 K/uL (0-0.3); HEMATOCRIT 25.8 % (38.0-50.0); IMMATURE GRANULOCYTE (%) 0.5 % (0.0-0.7); IMMATURE GRANULOCYTE COUNT 0.1 K/uL; INSTRUMENT ABS NEUTROPHIL CT 9.6 K/uL; LYMPHOCYTE COUNT 0.9 K/uL (1.0-2.8); MCHC 29.5 G/DL (30.0-36.0); MCV 91.8 FL (86-99); MEAN PLAT.VOLUME 12.2 uM^3 (9.0-12.4); MONOCYTE (%) 5.4 % (3-12); MONOCYTE COUNT 0.6 K/uL (0-0.8); NEUTROPHIL (%) 85.2 % (45-76); NEUTROPHIL COUNT 9.6 K/uL (1.8-6.4); PLATELET COUNT 241 K/uL (156-360); RBC DIS.WIDTH-CV 15.3 % (11.8-14.6); RBC DIS.WIDTH-SD 51.2 % (39-53); RED BLOOD COUNT 2.81 M/uL (4.00-5.50); WHITE BLOOD COUNT 11.2 K/uL (4.1-10.2)
[2016-07-22 07:39] LABS: ANION GAP 8 MEQ/L (2-14); CHLORIDE 119 MEQ/L (99-109); GFR ESTIMATE (CALCULATED) > 59 mL/min/; GLUCOSE 268 mg/dL (70-99); MAGNESIUM 2.7 mg/dl (1.3-2.7); POTASSIUM 4.2 MEQ/L (3.7-5.4); SAMPLE HEMOLYSIS CHECK 0; SAMPLE ICTERIC CHECK 0; SAMPLE LIPEMIA CHECK 0; SODIUM 152 MEQ/L (136-147); UREA NITROGEN (BUN) 58 mg/dL (9-23)
[2016-07-23] VITALS (19 sets, daily range): BP systolic 106–183; BP diastolic 40–84
[2016-07-23 02:36] LABS: POINT-OF-CARE METER ID UU13113731
[2016-07-23 05:13] LABS: POINT-OF-CARE METER ID UU13113731
[2016-07-23 06:17] LABS: EOSINOPHIL (%) 1.3 % (0-5); EOSINOPHIL COUNT 0.1 K/uL (0-0.3); HEMATOCRIT 23.4 % (38.0-50.0); IMMATURE GRANULOCYTE (%) 0.4 % (0.0-0.7); INSTRUMENT ABS NEUTROPHIL CT 6.3 K/uL; MCH 26.8 PG (29.0-34.0); MCHC 29.5 G/DL (30.0-36.0); MCV 91.1 FL (86-99); MEAN PLAT.VOLUME 12.2 uM^3 (9.0-12.4); MONOCYTE (%) 4.2 % (3-12); MONOCYTE COUNT 0.3 K/uL (0-0.8); NEUTROPHIL (%) 80.7 % (45-76); NEUTROPHIL COUNT 6.3 K/uL (1.8-6.4); PLATELET COUNT 241 K/uL (156-360); RBC DIS.WIDTH-CV 15.1 % (11.8-14.6); RBC DIS.WIDTH-SD 49.7 % (39-53); RED BLOOD COUNT 2.57 M/uL (4.00-5.50)
[2016-07-23 06:22] LABS: WHITE BLOOD COUNT 7.8 K/uL (4.1-10.2)
[2016-07-23 06:35] LABS: ANION GAP 9 MEQ/L (2-14); CHLORIDE 117 MEQ/L (99-109); GFR ESTIMATE (CALCULATED) > 59 mL/min/; GLUCOSE 323 mg/dL (70-99); MAGNESIUM 2.3 mg/dl (1.3-2.7); POTASSIUM 4.3 MEQ/L (3.7-5.4); SAMPLE HEMOLYSIS CHECK 0; SAMPLE ICTERIC CHECK 0; SAMPLE LIPEMIA CHECK 0; SODIUM 151 MEQ/L (136-147); UREA NITROGEN (BUN) 52 mg/dL (9-23)
[2016-07-23 10:11] LABS: POINT-OF-CARE METER ID UU13113731
[2016-07-23 14:15] LABS: POINT-OF-CARE METER ID UU13113731
[2016-07-23 17:26] LABS: POINT-OF-CARE METER ID UU13113731
[2016-07-23 19:19] LABS: HEMATOCRIT 29.9 % (38.0-50.0); MCV 87.7 FL (86-99)
[2016-07-23 21:26] LABS: POINT-OF-CARE METER ID UU13113731
[2016-07-24] VITALS (12 sets, daily range): BP systolic 0–161; BP diastolic 0–75
[2016-07-24 03:29] LABS: POINT-OF-CARE METER ID UU14174217
[2016-07-24 06:20] LABS: POINT-OF-CARE METER ID UU14174217
[2016-07-24 07:57] LABS: EOSINOPHIL (%) 2.2 % (0-5); EOSINOPHIL COUNT 0.2 K/uL (0-0.3); HEMATOCRIT 30.8 % (38.0-50.0); IMMATURE GRANULOCYTE (%) 0.5 % (0.0-0.7); INSTRUMENT ABS NEUTROPHIL CT 6.2 K/uL; LYMPHOCYTE COUNT 1.2 K/uL (1.0-2.8); MCH 26.2 PG (29.0-34.0); MCHC 29.9 G/DL (30.0-36.0); MCV 87.7 FL (86-99); MEAN PLAT.VOLUME 12.5 uM^3 (9.0-12.4); MONOCYTE (%) 4.6 % (3-12); MONOCYTE COUNT 0.4 K/uL (0-0.8); NEUTROPHIL (%) 77.2 % (45-76); NEUTROPHIL COUNT 6.2 K/uL (1.8-6.4); PLATELET COUNT 196 K/uL (156-360); RBC DIS.WIDTH-CV 15.4 % (11.8-14.6); RBC DIS.WIDTH-SD 49.6 % (39-53); WHITE BLOOD COUNT 8.1 K/uL (4.1-10.2)
[2016-07-24 07:59] LABS: RED BLOOD COUNT 3.51 M/uL (4.00-5.50)
[2016-07-24 08:10] LABS: ANION GAP 11 MEQ/L (2-14); CHLORIDE 113 MEQ/L (99-109); GFR ESTIMATE (CALCULATED) > 59 mL/min/; GLUCOSE 238 mg/dL (70-99); MAGNESIUM 2.1 mg/dl (1.3-2.7); POTASSIUM 4.2 MEQ/L (3.7-5.4); SAMPLE HEMOLYSIS CHECK 0; SAMPLE ICTERIC CHECK 0; SAMPLE LIPEMIA CHECK 0; SODIUM 149 MEQ/L (136-147); UREA NITROGEN (BUN) 47 mg/dL (9-23)
[2016-07-24 11:46] LABS: POINT-OF-CARE METER ID UU14174217
[2016-07-25] VITALS (11 sets, daily range): BP systolic 88–138; BP diastolic 41–66
[2016-07-25 03:18] LABS: POINT-OF-CARE METER ID UU13113731
[2016-07-25 06:29] LABS: EOSINOPHIL (%) 2.3 % (0-5); EOSINOPHIL COUNT 0.2 K/uL (0-0.3); HEMATOCRIT 28.3 % (38.0-50.0); IMMATURE GRANULOCYTE (%) 0.4 % (0.0-0.7); INSTRUMENT ABS NEUTROPHIL CT 5.7 K/uL; LYMPHOCYTE COUNT 1.1 K/uL (1.0-2.8); MCH 27.5 PG (29.0-34.0); MCHC 31.1 G/DL (30.0-36.0); MCV 88.4 FL (86-99); MEAN PLAT.VOLUME 11.9 uM^3 (9.0-12.4); MONOCYTE (%) 4.7 % (3-12); MONOCYTE COUNT 0.4 K/uL (0-0.8); NEUTROPHIL (%) 77.3 % (45-76); NEUTROPHIL COUNT 5.7 K/uL (1.8-6.4); PLATELET COUNT 210 K/uL (156-360); RBC DIS.WIDTH-SD 48.1 % (39-53); WHITE BLOOD COUNT 7.4 K/uL (4.1-10.2)
[2016-07-25 06:29] LABS: POINT-OF-CARE METER ID UU13113731
[2016-07-25 06:51] LABS: ANION GAP 6 MEQ/L (2-14); CHLORIDE 110 MEQ/L (99-109); GFR ESTIMATE (CALCULATED) > 59 mL/min/; GLUCOSE 161 mg/dL (70-99); MAGNESIUM 1.9 mg/dl (1.3-2.7); SAMPLE HEMOLYSIS CHECK 0; SAMPLE ICTERIC CHECK 0; SAMPLE LIPEMIA CHECK 0; SODIUM 142 MEQ/L (136-147); UREA NITROGEN (BUN) 44 mg/dL (9-23)
[2016-07-26] VITALS (13 sets, daily range): BP systolic 111–169; BP diastolic 49–70
[2016-07-26 08:58] LABS: EOSINOPHIL (%) 1.9 % (0-5); EOSINOPHIL COUNT 0.1 K/uL (0-0.3); HEMATOCRIT 28.4 % (38.0-50.0); IMMATURE GRANULOCYTE (%) 0.7 % (0.0-0.7); IMMATURE GRANULOCYTE COUNT 0.1 K/uL; INSTRUMENT ABS NEUTROPHIL CT 5.4 K/uL; LYMPHOCYTE COUNT 1.5 K/uL (1.0-2.8); MCH 26.6 PG (29.0-34.0); MCV 85.8 FL (86-99); MEAN PLAT.VOLUME 10.3 uM^3 (9.0-12.4); MONOCYTE (%) 4.7 % (3-12); MONOCYTE COUNT 0.4 K/uL (0-0.8); NEUTROPHIL (%) 73.1 % (45-76); NEUTROPHIL COUNT 5.4 K/uL (1.8-6.4); PLATELET COUNT 244 K/uL (156-360); RBC DIS.WIDTH-SD 46.5 % (39-53); RED BLOOD COUNT 3.31 M/uL (4.00-5.50); WHITE BLOOD COUNT 7.4 K/uL (4.1-10.2)
[2016-07-26 09:19] LABS: CHLORIDE 107 mEq/L (99-109); POTASSIUM 4.7 mEq/L (3.7-5.4); SODIUM 138 mEq/L (136-147)
[2016-07-26 09:23] LABS: ANION GAP 9 MEQ/L (2-14)
[2016-07-26 09:25] LABS: GFR ESTIMATE (CALCULATED) > 59 mL/min/; GLUCOSE 72 mg/dL (70-99)
[2016-07-26 09:26] LABS: UREA NITROGEN (BUN) 49 mg/dL (9-23)
[2016-07-27] VITALS (9 sets, daily range): BP systolic 119–199; BP diastolic 49–86
[2016-07-27 07:12] LABS: EOSINOPHIL COUNT 0.1 K/uL (0-0.3); HEMATOCRIT 26.2 % (38.0-50.0); IMMATURE GRANULOCYTE (%) 0.9 % (0.0-0.7); IMMATURE GRANULOCYTE COUNT 0.1 K/uL; INSTRUMENT ABS NEUTROPHIL CT 5.3 K/uL; LYMPHOCYTE COUNT 0.9 K/uL (1.0-2.8); MCH 26.9 PG (29.0-34.0); MCHC 30.5 G/DL (30.0-36.0); MCV 88.2 FL (86-99); MONOCYTE (%) 5.4 % (3-12); MONOCYTE COUNT 0.4 K/uL (0-0.8); NEUTROPHIL COUNT 5.3 K/uL (1.8-6.4); RBC DIS.WIDTH-CV 15.2 % (11.8-14.6); RBC DIS.WIDTH-SD 48.2 % (39-53); RED BLOOD COUNT 2.97 M/uL (4.00-5.50); WHITE BLOOD COUNT 6.7 K/uL (4.1-10.2)
[2016-07-27 07:37] LABS: ANION GAP 10 MEQ/L (2-14); CHLORIDE 106 MEQ/L (99-109); GFR ESTIMATE (CALCULATED) > 59 mL/min/; POTASSIUM 4.8 MEQ/L (3.7-5.4); SAMPLE HEMOLYSIS CHECK 0; SAMPLE ICTERIC CHECK 0; SAMPLE LIPEMIA CHECK 0; SODIUM 137 MEQ/L (136-147); UREA NITROGEN (BUN) 45 mg/dL (9-23)
[2016-07-27 07:38] LABS: MEAN PLAT.VOLUME 12.8 uM^3 (9.0-12.4); PLAT.SUFFICIENCY ADEQUATE; PLATELET COUNT 163 K/uL (156-360)
[2016-07-27 07:39] LABS: GLUCOSE 342 mg/dL (70-99); MAGNESIUM 2.3 mg/dl (1.3-2.7)
[2016-07-27 08:03] LABS: POINT-OF-CARE METER ID UU14174217
[2016-07-27 08:13] LABS: ADD MIUA? YES; BILIRUBIN NEGATIVE; BLOOD LARGE; COLOR YELLOW ((YELLOW)); GLUCOSE (STRIP) >=500; KETONES NEGATIVE; LEUKOCYTES SMALL; NITRITE NEGATIVE; PROTEIN (STRIP) NEGATIVE; SPECIFIC GRAVITY 1.008 (1.000-1.030); UROBILINOGEN 0.2 MG/DL (0.2-1.0)
[2016-07-27 08:48] LABS: BACTERIA NONE SEEN /HPF; EPITHELIAL CELLS NONE SEEN /HPF; MUCUS TRACE /LPF; RED BLOOD CELLS TNTC /HPF (0-5); UCUL ADDED? NO; WHITE BLOOD CELLS 30-40 /HPF (0-5)
[2016-07-27 11:59] LABS: POINT-OF-CARE METER ID UU14174217
[2016-07-27 13:55] LABS: POC NON-PRINT COM 1 ND
[2016-07-27 16:40] LABS: POINT-OF-CARE METER ID UU14174217
[2016-07-28] VITALS (9 sets, daily range): BP systolic 138–180; BP diastolic 56–74
[2016-07-28 07:19] LABS: EOSINOPHIL (%) 1.4 % (0-5); EOSINOPHIL COUNT 0.1 K/uL (0-0.3); HEMATOCRIT 25.5 % (38.0-50.0); IMMATURE GRANULOCYTE (%) 0.6 % (0.0-0.7); IMMATURE GRANULOCYTE COUNT 0.1 K/uL; INSTRUMENT ABS NEUTROPHIL CT 6.8 K/uL; MCH 27.1 PG (29.0-34.0); MCHC 30.6 G/DL (30.0-36.0); MCV 88.5 FL (86-99); MEAN PLAT.VOLUME 12.6 uM^3 (9.0-12.4); MONOCYTE (%) 4.5 % (3-12); MONOCYTE COUNT 0.4 K/uL (0-0.8); NEUTROPHIL (%) 81.5 % (45-76); NEUTROPHIL COUNT 6.8 K/uL (1.8-6.4); PLATELET COUNT 159 K/uL (156-360); RBC DIS.WIDTH-CV 14.8 % (11.8-14.6); RBC DIS.WIDTH-SD 47.8 % (39-53); RED BLOOD COUNT 2.88 M/uL (4.00-5.50); WHITE BLOOD COUNT 8.4 K/uL (4.1-10.2)
[2016-07-28 07:57] LABS: ANION GAP 9 MEQ/L (2-14); CHLORIDE 103 MEQ/L (99-109); GFR ESTIMATE (CALCULATED) > 59 mL/min/; GLUCOSE 218 mg/dL (70-99); POTASSIUM 4.7 MEQ/L (3.7-5.4); SAMPLE HEMOLYSIS CHECK 0; SAMPLE ICTERIC CHECK 0; SAMPLE LIPEMIA CHECK 0; SODIUM 137 MEQ/L (136-147); UREA NITROGEN (BUN) 33 mg/dL (9-23)
[2016-07-28 08:01] LABS: MAGNESIUM 1.9 mg/dl (1.3-2.7)
[2016-07-28 12:27] LABS: IRON 12 MCG/DL (35-150)
[2016-07-28 13:24] LABS: FERRITIN 545 NG/ML (22-322)
[2016-07-28 16:49] LABS: HEMATOCRIT 26.8 % (38.0-50.0); MCV 86.5 FL (86-99)
[2016-07-29] VITALS: BP 106/47
[2016-07-29 02:00] VITALS: BP 98/44
[2016-07-29 04:00] VITALS: BP 89/54
[2016-07-29 05:42] LABS: BASE EXCESS 2.5 mEq/L (-3 to +3); BICARBONATE 27.2 mEq/L (22-26); CARBOXY HGB 1.9 % (0-5); METHEMOGLOBIN 1.4 % (0-1.5); PCO2 42 mm Hg (35-45); PO2 62 mm Hg (80-100); pH 7.42 (7.35-7.45)
[2016-07-29 05:43] LABS: COMMENTS - BLOOD GASES C+; DEVICE VENTILATOR; FI02 40 %; MECHANICAL RATE 16 resp/min; MODE AC; PEEP 5 CM/H20; SITE RR; TIDAL VOLUME 600 ML; TOTAL RESP RATE 17 resp/min
[2016-07-29 07:11] LABS: EOSINOPHIL (%) 2.6 % (0-5); EOSINOPHIL COUNT 0.2 K/uL (0-0.3); IMMATURE GRANULOCYTE (%) 0.7 % (0.0-0.7); IMMATURE GRANULOCYTE COUNT 0.1 K/uL; INSTRUMENT ABS NEUTROPHIL CT 5.4 K/uL; LYMPHOCYTE COUNT 1.3 K/uL (1.0-2.8); MCH 27.4 PG (29.0-34.0); MCHC 30.8 G/DL (30.0-36.0); MONOCYTE (%) 5.8 % (3-12); MONOCYTE COUNT 0.4 K/uL (0-0.8); NEUTROPHIL (%) 72.9 % (45-76); NEUTROPHIL COUNT 5.4 K/uL (1.8-6.4); PLATELET COUNT 163 K/uL (156-360); RBC DIS.WIDTH-CV 14.8 % (11.8-14.6); RBC DIS.WIDTH-SD 47.9 % (39-53); RED BLOOD COUNT 2.81 M/uL (4.00-5.50); WHITE BLOOD COUNT 7.5 K/uL (4.1-10.2)
[2016-07-29 07:33] LABS: ANION GAP 6 MEQ/L (2-14); CHLORIDE 102 MEQ/L (99-109); GFR ESTIMATE (CALCULATED) > 59 mL/min/; GLUCOSE 179 mg/dL (70-99); MAGNESIUM 1.7 mg/dl (1.3-2.7); POTASSIUM 4.7 MEQ/L (3.7-5.4); SAMPLE HEMOLYSIS CHECK 0; SAMPLE ICTERIC CHECK 0; SAMPLE LIPEMIA CHECK 0; SODIUM 134 MEQ/L (136-147); UREA NITROGEN (BUN) 29 mg/dL (9-23)
[2016-07-29 08:00] VITALS: BP 107/42
[2016-07-29] MEDS ORDERED: ALPRAZOLAM0.25 M2 PO (10:40)
[2016-07-29] MEDS ORDERED: NOVOLOG PE100 UNITS/ SC (10:40)
[2016-07-29] MEDS ORDERED: LEVEMIR100 UNIT/2 SC (10:40)
[2016-07-29] MEDS ORDERED: DUONEB 2.5-0.5 M3 ML AEROSOL (10:40)
[2016-07-29] MEDS ORDERED: DOCUSATE SODIU100 MG PO (10:40)
[2016-07-29] MEDS ORDERED: TYLENOL REGULA325 MG PO (10:40)
[2016-07-29] MEDS ORDERED: FUROSEMIDE20 MG PO (10:40)
[2016-07-29] MEDS ORDERED: ASPIRIN81 M2 PO (10:40)
[2016-07-29] MEDS ORDERED: GABAPENTIN300 MG PO (10:40)
[2016-07-29] MEDS ORDERED: LEVAQUIN500 MG PO (10:42)
[2016-07-29 10:43] LABS: ADD MIUA? YES; BILIRUBIN NEGATIVE; BLOOD MODERATE; COLOR YELLOW ((YELLOW)); GLUCOSE (STRIP) 50; KETONES NEGATIVE; LEUKOCYTES NEGATIVE; NITRITE NEGATIVE; PROTEIN (STRIP) NEGATIVE; UROBILINOGEN 0.2 MG/DL (0.2-1.0)
[2016-07-29] MEDS ORDERED: ZOSYN 3.3753.375 GM IV (11:26)
[2016-07-29 11:50] LABS: BACTERIA NONE SEEN /HPF; EPITHELIAL CELLS RARE /HPF; MUCUS TRACE /LPF; UCUL ADDED? NO; WHITE BLOOD CELLS 0-5 /HPF (0-5)
[2016-07-29 12:00] VITALS: BP 113/50
== END 2016-07-29 14:08 | disposition other institution (70) | DRG 3 ==
LOC: EME → EDBD 20:21 → EME 20:21 → EDOF 21:27 → 4WEST 21:27
PROVIDERS: Emergency Medicine; Internal Medicine; Internal Medicine Cardiovascular Disease; Internal Medicine Nephrology; Internal Medicine Pulmonary Disease; Psychiatry & Neurology Neurology
PROC: 5A1955Z Respiratory Ventilation, Greater than 96 Consecutive Hours (ICD-10-PCS; 2016-07-06)
PROC: 03HY32Z Insertion of Monitoring Device into Upper Artery, Percutaneous Approach (ICD-10-PCS; principal; 2016-07-07)
PROC: 0B988ZX Drainage of Left Upper Lobe Bronchus, Via Natural or Artificial Opening Endoscopic, Diagnostic (ICD-10-PCS; 2016-07-09)
PROC: 0B9B8ZX Drainage of Left Lower Lobe Bronchus, Via Natural or Artificial Opening Endoscopic, Diagnostic (ICD-10-PCS; 2016-07-09)
PROC: 0B968ZX Drainage of Right Lower Lobe Bronchus, Via Natural or Artificial Opening Endoscopic, Diagnostic (ICD-10-PCS; 2016-07-09)
PROC: 0B948ZX Drainage of Right Upper Lobe Bronchus, Via Natural or Artificial Opening Endoscopic, Diagnostic (ICD-10-PCS; 2016-07-09)
PROC: 0BH17EZ Insertion of Endotracheal Airway into Trachea, Via Natural or Artificial Opening (ICD-10-PCS; 2016-07-11)
PROC: 0DH64UZ Insertion of Feeding Device into Stomach, Percutaneous Endoscopic Approach (ICD-10-PCS; 2016-07-18)
PROC: 0B110F4 Bypass Trachea to Cutaneous with Tracheostomy Device, Open Approach (ICD-10-PCS; 2016-07-18)
PROC: 01N10ZZ Release Cervical Nerve, Open Approach (ICD-10-PCS; 2016-07-18)
PROC: 0RG40A1 (ICD-10-PCS; 2016-07-18)
PROC: 30233N1 Transfusion of Nonautologous Red Blood Cells into Peripheral Vein, Percutaneous Approach (ICD-10-PCS; 2016-07-23)
DX: A41.9 Sepsis, unspecified organism (principal); R65.21 Severe sepsis with septic shock; J96.01 Acute respiratory failure with hypoxia; J69.0 Pneumonitis due to inhalation of food and vomit; N17.0 Acute kidney failure with tubular necrosis; G95.89 Other specified diseases of spinal cord; G82.50 Quadriplegia, unspecified; R13.10 Dysphagia, unspecified; M48.02 Spinal stenosis, cervical region; G61.0 Guillain-Barre syndrome; E11.22 Type 2 diabetes mellitus with diabetic chronic kidney disease; I48.0 Paroxysmal atrial fibrillation; E87.2 Acidosis; I24.9 Acute ischemic heart disease, unspecified; E66.01 Morbid (severe) obesity due to excess calories; Z68.43 Body mass index [BMI] 50.0-59.9, adult; I95.9 Hypotension, unspecified; E11.65 Type 2 diabetes mellitus with hyperglycemia; I27.2 Other secondary pulmonary hypertension; E11.42 Type 2 diabetes mellitus with diabetic polyneuropathy; E78.5 Hyperlipidemia, unspecified; K44.9 Diaphragmatic hernia without obstruction or gangrene; G47.33 Obstructive sleep apnea (adult) (pediatric); I12.9 Hypertensive chronic kidney disease with stage 1 through stage 4 chronic kidney disease, or unspecified chronic kidney disease; N18.2 Chronic kidney disease, stage 2 (mild); I87.8 Other specified disorders of veins; E87.6 Hypokalemia; D64.9 Anemia, unspecified; Z79.4 Long term (current) use of insulin
CPT/HCPCS: 36600; 36620; 70551; 71010; 72020; 72125; 72141; 72142; 72156; 76000; 76770; 80048; 80048 91; 80053; 80202; 81003; 82272; 82607; 82728; 82803; 82948; 83036; 83540; 83605; 83735; 83880; 84100; 84466; 84484; 84550; 84999; 85014; 85018; 85025; 85027; 85610; 85730; 86900; 86901; 86920; 87040; 87070; 87077; 87086; 87106; 87181; 87205; 87493; 87502; 87641; 92526 GN; 92610 GN; 93005; 93306; 94002; 94003; 94640; 94640 76; 94760; 94799; 97530 GO; 97530 GP; 99202; 99281; 99285; C1713; J0131; J0171; J0360; J0456; J0610; J0696; J1100; J1170; J1566; J1580; J1644; J1720; J1815; J1940; J2060; J2250; J2405; J2543; J2704; J2930; J3010; J3370; J3475; J3480; J7030; J7040; J7050; J7070; J7120; P9016; P9045; P9047; S0020; S0028